=== PATIENT | male | born 1985 | race Caucasian/White ===

== ENCOUNTER 2019-09-21 07:22 | Outpatient (CLI) | payer BC, SELFPAY ==
[2019-09-21 07:47] LABS: Hemoglobin A1C 5.4 % (<5.7)
== END 2019-09-21 07:23 | disposition home or self-care (01) ==
PROVIDERS: PCP Family Medicine; Visit Provider Nurse Practitioner
DX: R73.9 Hyperglycemia, unspecified (principal)
CPT/HCPCS: 36415; 83036

== ENCOUNTER 2022-09-08 10:21 | Emergency (ER) | payer BC, SELFPAY ==
[2022-09-08 10:41] VITALS: BP 137/86; PULSE 85; RESP 16; TEMP 36.2; O2SAT 99
--- NOTE | 2022-09-08 10:53 | ED.ABDPAIN ---
HPI - Abdominal Pain General Chief Complaint: Nausea/Vomiting/Diarrhea Stated Complaint: diarrhea,rt side pain,abdominal discomfort Time Seen by Provider: 09/08/22 10:53 Source: patient, RN notes reviewed and old records reviewed Mode of arrival: ambulatory Limitations: no limitations History of Present Illness HPI narrative: 36-year-old male presents to the [facility] with increasing pain to the right lower quadrant over the last 2 days. States that started around his umbilical area and has localized to the right lower quadrant. Onset (ago): day(s) (2) Related Data Home Medications Medication Instructions Recorded Confirmed No Home Medications 07/15/22 07/15/22 Allergies Allergy/AdvReac Type Severity Reaction Status Date / Time No Known Allergies Allergy Verified 07/15/22 15:18 Review of Systems Review of Systems: All systems reviewed & are unremarkable except as noted in HPI and below Constitutional: Constitutional: Reports no additional constitutional complaints Eyes: Eyes: Reports no additional eye complaints ENT: Reports system reviewed and no additional complaints, except as documented Cardiovascular: Cardiovascular: Reports no additional cardiovascular complaints, Denies chest pain and Denies dyspnea Respiratory: Respiratory: Reports no additional respiratory complaints, Denies chest congestion, Denies cough and Denies dyspnea Gastrointestinal: Gastrointestinal: Reports as per HPI, Reports abdominal pain, Reports diarrhea, Reports nausea and Denies vomiting Musculoskeletal: Musculoskeletal: Reports no additional musculoskeletal complaints Integumentary/Breasts: Skin/Breast: Reports system reviewed and no additional complaints, except as docu Neurologic: Reports system reviewed and no additional complaints, except as documented Psychiatric: Psychiatric: Reports no additional psychiatric complaints Allergic/Immunologic: Allergic/Immunologic: Reports no additional allergic/immunologic complaints [facility] Family History Family History Father Family history of bipolar disorder Depression Anxiety Heart disease Grandparent Family history of bipolar disorder Alcoholism Sibling Alcoholism Social History Social History Smoking status: Never smoker Alcohol intake: unknown Substance use type: does not use Lack of Transportation: No Lack of Food: Sometimes True Current Housing: I Have Housing Concerned About Future Housing: No Difficulty Paying Gas/Electric Bills: No Difficulty Paying for Meds: No Currently Unemployed: No Education: Bachelor's Degree Difficulty w/ Childcare or Family Care: No Comments At the time of my signature, I reviewed and agree with the nursing past medical, surgical, social, and family history. There is no relevant family history pertinent to the patient complaint. Exam Const: General: cooperative, healthy appearing, comfortable, no acute distress, well developed, alert and well nourished Nutritional Appearance: well nourished Orientation/consciousness: patient oriented x3 Limitations: no limitations HENMT: Head: normal to inspection Ears: hearing grossly normal bilaterally and external ears normal Face/Nose/Sinus: Normal external nose present, Normal nares present, Normal nasal mucous membranes and turbinates present and normal facial exam Face and sinus: normal facial exam Mouth: Yes Normal oral and palatal mucosa present, Yes lip normal and Yes moist mucous membranes Eyes: General: appearance normal, both eyes and all related structures Alignment and Position: alignment normal Periorbital: periorbital findings normal Conjunctivae: conjunctivae normal Pupils: Equal, round and reactive pupils present EOM: EOMs intact bilaterally Neck: Neck: normal visual inspection, full ROM, no lymphadenopathy and no meningeal signs Chest: Lakshmi
== END 2022-09-08 10:58 | disposition home or self-care (01) ==
PROVIDERS: Emergency Provider Nurse Practitioner Family
DX: R10.31 Right lower quadrant pain (principal)
CPT/HCPCS: 99212; G0463

== ENCOUNTER 2022-09-08 11:19 | Emergency (ER) | payer BC, SELFPAY ==
--- NOTE | ~2022-09-08 | CT_ITS ---
. EXAMINATION: CT abdomen pelvis w con DATE: 09/08/2022 12:24 INDICATION: Right lower quadrant abdominal pain for one month. Nausea, vomiting, diarrhea TECHNIQUE: Computed tomography (CT) of the abdomen and pelvis was performed with 100 CC Omnipaque 350 intravenous contrast. Automated exposure control and iterative reconstruction technique were employe d. Exam dose: 510.46 mGy-cm total exam DLP. COMPARISON: None. FINDINGS: Minimal bilateral lateral dependent atelectasis. Normal heart size. No pericardial or pleur al effusion. The liver, gallbladder, bile ducts, spleen, pancreas, pancreatic duct, and adrenal glands and kidneys are unremarkable. Normal caliber of the abdominal aorta. No intraperitoneal or retroperitoneal or pelvic mass lesion or adenopathy or ascites. Prostate gland is normal size but there are some prostate calcifications. The urinary bladder is unre markable. There are numerous nondilated fluid containing small bowel segments. No small or large bowel dilatati on, bowel wall thickening, pneumatosis or intraperitoneal free air is detected. No CT evidence of appendicitis. No suspicious osteolytic or osteoblastic lesions are noted. Irregularity of the lumbar vertebral endplates loss of height of some lumbar vertebral bodies, likely due to Scheuermann's disease. Prominent posterior spurring at L4-5. . IMPRESSION: No evidence of appendicitis Reviewed, dictated and finalized at [facility] Reviewed, dictated and finalized at [facility] IMPRESSION: No evidence of appendicitis
[2022-09-08 11:22] VITALS: BP 140/77; PULSE 87; RESP 12; TEMP 36.8; O2SAT 100
[2022-09-08 11:40] LABS: Basophils Percent Auto 0.4 % (0.2-1.2); Eosinophils Absolute Auto 0.6 K/mm3 (0-0.3); Eosinophils Percent Auto 5.3 % (0-4.4); Hematocrit 52.2 % (42.0-52.0); Immature Granulocyte Absolute 0.03 K/mm3 (0.00-0.031); Immature Granulocyte Percent A 0.3 % (0-0.5); Lymphocytes Percent Auto 10.2 % (18.3-44.2); Mean Corpuscular HGB Conc 32.6 g/dl (32-36); Mean Corpuscular Hemoglobin 28.9 pg (26-34); Mean Corpuscular Volume 88.6 fl (80-100); Mean Platelet Volume 9.8 fl (7.4-10.4); Monocytes Absolute Auto 0.5 K/mm3 (0.1-0.6); Monocytes Percent Auto 4.7 % (2.6-8.5); Neutrophils Absolute Auto 8.5 K/mm3 (1.3-6.7); Neutrophils Percent Auto 79.1 % (45.5-73.1); Platelet Count Result 303 k/mm3 (150-375); Red Blood Count 5.89 M/mm3 (4.6-6.20); Red Cell Distribution Width 12.7 % (11.5-14.5); White Blood Count 10.8 K/mm3 (4.5-10.0)
[2022-09-08 11:49] LABS: Alanine Aminotransferase 33 U/L (6-50); Albumin Level 4.7 g/dL (3.5-5.1); Alkaline Phosphatase 36 U/L (38-126); Anion Gap 6 mmol/L (8-16); Aspartate Amino Transferase 26 U/L (17-59); Bilirubin,Total 0.5 mg/dL (0.2-1.3); Blood Urea Nitrogen 22 mg/dL (9-20); Calcium 8.8 mg/dL (8.4-10.2); Carbon Dioxide 28 mmol/L (22-30); Chloride 103 mmol/L (98-107); Estimated Glomerular Filt Rate 58; Glucose 80 mg/dL (65-110); Lipase 48 U/L (23-300); Potassium 4.4 mmol/L (3.4-5.0); Sodium 137 mmol/L (137-145)
[2022-09-08 11:55] LABS: Appearance Urine Clear (Clear); Bilirubin Urine Negative (Negative); Blood Urine Negative (Negative); Color Urine Yellow (Yellow); Glucose Urine UA Negative (Negative); Ketones Urine Negative (Negative); Leukocyte Esterase Ur Negative LEU/UL (Negative); Nitrate Urine Negative (Negative); Protein Urine Negative (Negative); Specific Grav Ur 1.022 (1.001-1.035)
[2022-09-08 12:03] LABS: Add Urine Microscopic? NO
[2022-09-08] MEDS: SODIUM CHLORIDE 0.9% IV 1,000 ML 999 ML IV CONT (12:08)
--- NOTE | 2022-09-08 12:14 | PC.NURSE ---
Pt to CT scan via w/c at this time.
--- NOTE | 2022-09-08 13:11 | ED.ABDPAIN ---
HPI - Abdominal Pain General Chief Complaint: Abdominal Pain Stated Complaint: right lower abdominal pain Time Seen by Provider: 09/08/22 11:29 Source: patient Mode of arrival: ambulatory Limitations: no limitations History of Present Illness HPI narrative: This is a 36 year old male that presents to the ER for intermittent mid abdominal pain ongoing over the last month. Reports last night it localized to the RLQ and he had some diarrhea. The pain is sharp in nature. He was seen at urgent care and sent to the ER for further evaluation. Denies fever, vomiting, dysuria or hematuria. Related Data Home Medications Medication Instructions Recorded Confirmed No Home Medications 07/15/22 07/15/22 Allergies Allergy/AdvReac Type Severity Reaction Status Date / Time No Known Allergies Allergy Verified 09/08/22 11:30 Review of Systems Review of Systems: CONSTITUTIONAL: Denies fever GASTROINTESTINAL: Reports abdominal pain, nausea, and diarrhea. Denies vomiting GENITOURINARY: Denies dysuria or hematuria. All systems reviewed & are unremarkable except as noted in HPI and below PMFSH Past Medical History Medical History (Updated 09/08/22 @ 13:20 by Christen Garza PA-C) No active medical problems Family History Family History Father Family history of bipolar disorder Depression Anxiety Heart disease Grandparent Family history of bipolar disorder Alcoholism Sibling Alcoholism Social History Social History Smoking status: Never smoker Alcohol intake: unknown Substance use type: does not use Lack of Transportation: No Lack of Food: Sometimes True Current Housing: I Have Housing Concerned About Future Housing: No Difficulty Paying Gas/Electric Bills: No Difficulty Paying for Meds: No Currently Unemployed: No Education: Bachelor's Degree Difficulty w/ Childcare or Family Care: No Exam Narrative: GENERAL: Well-appearing, well-nourished, and in no acute distress. HEAD: Normocephalic, atraumatic. EYES: EOMI. CHEST: Clear to auscultation. No respiratory distress. No wheezes rales or rhonchi HEART: Regular rate and rhythm. No murmur heard. Normal peripheral pulses. ABDOMEN: Soft, nondistended, normal active bowel sounds. Mild tenderness to palpation in the right lower quadrant, without guarding. No CVA tenderness EXTREMITIES: Normal range of motion. No edema. SKIN: Warm, dry, no rash. NEURO: No focal deficits. Alert and oriented x3. PSYCH: Normal mood and affect Course Course Emergency Course: Patient was updated on workup and agrees with plan of care Vital Signs Vital signs: Vital Signs Temperature 98.3 F 09/08/22 11:22 Pulse Rate 87 09/08/22 11:22 Respiratory Rate 12 09/08/22 11:22 Blood Pressure 140/77 09/08/22 11:22 Pulse Oximetry 100 09/08/22 11:22 Oxygen Delivery Room Air 09/08/22 11:22 Temperature 98.3 F 09/08/22 11:22 Pulse Rate 87 09/08/22 11:22 Respiratory Rate 12 09/08/22 11:22 Blood Pressure 140/77 09/08/22 11:22 Pulse Oximetry 100 09/08/22 11:22 Oxygen Delivery Room Air 09/08/22 11:22 MDM - Abdominal Pain MDM Narrative Medical decision making narrative: Patient presents emergency department for mid abdominal pain ongoing over the last month. Reports localization to the right lower quadrant last night. He is afebrile and nontoxic appearing. Vitals are stable. CBC with mild leukocytosis to 10.8. Metabolic panel with mild elevation in creatinine of 1.4. Otherwise no concerning electrolyte derangements. Liver enzymes are normal. Lipase is normal. UA without evidence of infection. CT scan of the abdomen and pelvis without acute findings. Patient was updated on workup and agrees with plan of care. Will be given follow up with gastroenterology for ongoing abdominal issues. He was given warnings to return t
[2022-09-08 13:40] VITALS: BP 133/82; PULSE 80; RESP 15; O2SAT 100
== END 2022-09-08 13:43 | disposition home or self-care (01) ==
PROVIDERS: Emergency Provider Physician Assistant
DX: R10.31 Right lower quadrant pain (principal)
CPT/HCPCS: 36415; 74177; 80053; 81003; 83690; 85025; 96361; 96365; 99284; J0131; J7030; Q9967

== ENCOUNTER 2023-02-15 18:13 | Emergency (ER) | payer BC, SELFPAY ==
[2023-02-15 18:57] VITALS: BP 160/76; PULSE 83; RESP 16; TEMP 36.4; O2SAT 97
[2023-02-15] MEDS: LIDO 1%/EPINEPHRINE 1:100,000 20 ML VIAL 10 ML INFILTRATE (22:15)
--- NOTE | 2023-02-15 22:21 | ED.GENADULT ---
HPI - General Adult General Chief complaint: Unspecified Stated complaint: hemmorhoid Time Seen by Provider: 02/15/23 21:30 History of Present Illness HPI narrative: This is a 37-year-old presenting with hemorrhoids. 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 Symptoms started a day and half ago. He has been taking Sitz baths, steroids and fiber with no relief. He has appointment next week to see a GI doctor. No other complaints. Related Data Home Medications Medication Instructions Recorded Confirmed No Home Medications 07/15/22 07/15/22 Allergies Allergy/AdvReac Type Severity Reaction Status Date / Time No Known Allergies Allergy Verified 09/08/22 11:30 [facility] Past Medical History Medical History No active medical problems Family History Family History Father Family history of bipolar disorder Depression Anxiety Heart disease Grandparent Family history of bipolar disorder Alcoholism Sibling Alcoholism Social History Social History Smoking status: Never smoker Alcohol intake: unknown Substance use type: does not use Lack of Transportation: No Lack of Food: Sometimes True Current Housing: I Have Housing Concerned About Future Housing: No Difficulty Paying Gas/Electric Bills: No Difficulty Paying for Meds: No Currently Unemployed: No Education: Bachelor's Degree Difficulty w/ Childcare or Family Care: No Exam Narrative: APPEARANCE: No apparent distress. Head: atraumatic. EYES: EOMI, NOSE: Atraumatic NECK: Trachea midline RESPIRATORY: No increased rate of breathing CARDIOVASCULAR: RRR, ABDOMINAL: Non-distended RECTAL: 1.5 cm thrombosed on left of anus MUSCULOSKELETAl: No obvious deformities NEURO: Alert. Moving 4/4 extremities SKIN:: Warm, dry. Normal color PSYCHIATRIC: Normal affect Course Vital Signs Vital signs: Vital Signs Temperature 97.6 F 02/15/23 18:57 Pulse Rate 83 02/15/23 18:57 Respiratory Rate 16 02/15/23 18:57 Blood Pressure 160/76 H 02/15/23 18:57 Pulse Oximetry 97 02/15/23 18:57 Temperature 97.6 F 02/15/23 18:57 Pulse Rate 83 02/15/23 18:57 Respiratory Rate 16 02/15/23 18:57 Blood Pressure 160/76 H 02/15/23 18:57 Pulse Oximetry 97 02/15/23 18:57 Procedures Other Procedure Procedure 1: Other Procedure: Excision of a thrombosed hemorrhoid. Area was anesthetized using 1% lidocaine with epi -3 cc. An elliptical incision was made with drainage of clot and it was packed. hemostasis achieved. Patient tolerated the procedure without complication. Medical Decision Making MDM Narrative Medical decision making narrative: -Presentation: 37-year-old presenting with hemorrhoid. 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 Vital Signs Vital Signs: Vital Signs Temperature 97.6 F 02/15/23 18:57 Pulse Rate 83 02/15/23 18:57 Respiratory Rate 16 02/15/23 18:57 Blood Pressure 160/76 H 02/15/23 18:57 Pulse Oximetry 97 02/15/23 18:57 Temperature 97.6 F 02/15/23 18:57 Pulse Rate 83 02/15/23 18:57 Respiratory Rate 16 02/15/23 18:57 Blood Pressure 160/76 H 02/15/23 18:57 Pulse Oximetry 97 02/15/23 18:57 Discharge Plan Discharge Clinical Impression: Hemorrhoids, thrombosed Patient Disposition: Home, Self-Care Condition: Stable Instructions: Antibiotic Form, Hemorrhoids (DC) Additional Instructions: please remove the packing in 48 hours. Please follow-up with your primary care physici
== END 2023-02-15 22:39 | disposition home or self-care (01) ==
PROVIDERS: Emergency Provider Emergency Medicine
DX: K64.5 Perianal venous thrombosis (principal)
CPT/HCPCS: 46083; 99282

== ENCOUNTER 2023-07-19 18:13 | Emergency (ER) | payer BC, SELFPAY ==
[2023-07-19 18:17] VITALS: BP 137/95; PULSE 88; RESP 16; TEMP 36.3; O2SAT 100
--- NOTE | 2023-07-19 18:23 | ED.CHESTPAIN ---
HPI - Chest Pain General Chief Complaint: Chest Pain Stated Complaint: Chest pain Time Seen by Provider: 07/19/23 18:24 Source: patient, RN notes reviewed and old records reviewed Mode of arrival: ambulatory Limitations: no limitations History of Present Illness HPI narrative: 37 year old male [facility] with stated complaints of intermittent complaints of chest pain non consistent 3 weeks ago which have become more consistent for past 2 weeks with today experiencing left side chest pain with radiation to his left shoulder. Patient reports that he has been excessively fatigued and also somewhat short of breath today.. Patient reports that he did chew tobacco in the past quit 2 years ago and drinks no alcohol or use any illicit drugs. Patient reports that he use to use pre workout with caffeine and an energy drink in the past but has not used this in a long while. Patient reports that he has had some acid reflux in past but this pain is not acid reflux like he has had in past. Patient does state that his father had his first CT at age 56. Patient does report that he [facility], denies any anabolic steroid. MD complaint: chest pain (pressure radiates to left shoulder today) Onset (ago): week(s) (2 weeks more consistently but today with increased fatigue radiation to left shoulder and dyspnea) Prior episodes: Yes Pain location: left chest Pain radiation: left shoulder Pain scale (0-10): 6 Quality: other (pressure) Related Data Home Medications Medication Instructions Recorded Confirmed No Home Medications 07/15/22 07/19/23 Allergies Allergy/AdvReac Type Severity Reaction Status Date / Time No Known Allergies Allergy Verified 07/19/23 18:19 Review of Systems Review of Systems: CONSTITUTIONAL: Denies fever, chills, or sweats. EYES: Denies visual changes, redness, or discharge. ENT: Denies rhinorrhea, congestion, sore throat, or otalgia. CARDIOVASCULAR: positive for chest pain,no palpitations, or edema. RESPIRATORY: Denies cough, reports some dyspnea. GASTROINTESTINAL: Denies abdominal pain, nausea, vomiting, or diarrhea. GENITOURINARY: Denies dysuria or hematuria. SKIN: Denies rash or itching. MUSCULOSKELETAL: Denies back pain, joint pain, or myalgia. NEUROLOGIC: Denies headache, numbness, or weakness. PSYCHIATRIC: Denies anxiety or depression. All systems reviewed & are unremarkable except as noted in HPI and below PMFSH Past Medical History Medical History No active medical problems Family History Family History Father Family history of bipolar disorder Depression Anxiety Heart disease Grandparent Family history of bipolar disorder Alcoholism Sibling Alcoholism Social History Social History (Updated 07/20/23 @ 20:14 by Alexus Farr NP) Smoking status: Never smoker Tobacco type: smokeless tobacco Additional smoking assessment comments: Quit chewing tobacco 2 years ago Alcohol intake: unknown Substance use type: does not use Lack of Transportation: No Lack of Food: Sometimes True Current Housing: I Have Housing Concerned About Future Housing: No Difficulty Paying Gas/Electric Bills: No Difficulty Paying for Meds: No Currently Unemployed: No Education: Bachelor's Degree Difficulty w/ Childcare or Family Care: No Comments At time of signature, agree with nursing past medical, surgical, social and family history. There is no relevant family history pertinent to the presenting complaint Exam Narrative: GENERAL: Well-appearing, well-nourished, and in no acute distress. HEAD: Normocephalic, atraumatic. EYES: PERRLA and EOMI. ENT: Nares clear, no rhinorrhea or epistaxis. Mucous membranes moist.TM's normal throat pink with no swelling NECK: Supple.no lymphadenopathy CHEST: Clear to auscultation. No respirato
== END 2023-07-19 18:42 | disposition home or self-care (01) ==
PROVIDERS: Emergency Provider Registered Nurse
DX: R07.9 Chest pain, unspecified (principal); Z87.891 Personal history of nicotine dependence
CPT/HCPCS: 93005; 99213; G0463

== ENCOUNTER 2023-07-19 19:03 | Emergency (ER) | payer BC, SELFPAY ==
--- NOTE | ~2023-07-19 | XR_ITS ---
EXAMINATION: XR chest 2V DATE: 07/19/2023 19:27 INDICATION: Chest pain TECHNIQUE: PA and lateral views of the chest are obtained. COMPARISON: None available FINDINGS: The lungs are free of acute opacities. No pleural effusion or pneumothorax. The cardiomedia stinal silhouette is normal. The visualized bones and soft tissues are unremarkable. IMPRESSION: 1. No acute cardiopulmonary abnormality. Reviewed, dictated and finalized at [facility]
--- NOTE | 2023-07-19 19:05 | ECG_ITS ---
Measurements Intervals [place] Rate: 79 P: 63 PA: 164 QRS: 13 QRSD: 81 T: 46 QT: 311 QTc: 358 Interpretive Statements SINUS RHYTHM POSSIBLE LEFT ATRIAL ENLARGEMENT INCOMPLETE RIGHT BUNDLE BRANCH BLOCK BORDERLINE ECG COMPARED TO ECG 07/19/2023 18:36:50 NO SIGNIFICANT CHANGES Electronically Signed On 07-19-2023 19:31:05 REHABILITATOR by Jerrod Frausto D.O.
[2023-07-19 19:22] VITALS: BP 143/87; PULSE 85; RESP 16; TEMP 36.6; O2SAT 97
--- NOTE | 2023-07-19 20:08 | PC.NURSE ---
pt states they want to follow up with PCP because their symptoms have resolved. pt was educated on symptoms warranting a return to the ED
== END 2023-07-19 20:08 | disposition left against medical advice (07) ==
DX: R07.9 Chest pain, unspecified (principal)
CPT/HCPCS: 71046; 93005; 99199